=== PATIENT | female | born 2005 | race Caucasian/White ===

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

== ENCOUNTER 2025-03-05 16:56 | Emergency (ER) | payer OTHER ==
[~2025-03-05] VITALS: Ht 162.5 cm; Wt 65.8 kg
[~2025-03-05 16:56] MED LIST changes: +PEPCID20 MG PO; +REGLAN10 M1 PO
== END 2025-03-05 19:00 | disposition left against medical advice (07) ==
LOC: ED 16:56
DX: R07.81 Pleurodynia (principal); Z53.21 Procedure and treatment not carried out due to patient leaving prior to being seen by health care provider; W23.1XXA Caught, crushed, jammed, or pinched between stationary objects, initial encounter; Y93.89 Activity, other specified; Y92.89 Other specified places as the place of occurrence of the external cause; Y99.8 Other external cause status

== ENCOUNTER 2025-03-22 13:37 | Emergency (ER) | payer OTHER ==
[~2025-03-22] VITALS: Wt 66.7 kg
[2025-03-22] MEDS ORDERED: Ketorolac Tromethamine 30 MG/ML VIAL IM ONE (15:20)
[2025-03-22] MEDS ORDERED: NAPROSYN500 MG PO (15:45)
[2025-03-22] MEDS ORDERED: ZANAFLEX4 MG PO (15:45)
== END 2025-03-22 16:02 | disposition home or self-care (01) ==
LOC: ED 13:37
DX: S20.212A Contusion of left front wall of thorax, initial encounter (principal); F90.9 Attention-deficit hyperactivity disorder, unspecified type; F32.A Depression, unspecified; Z88.1 Allergy status to other antibiotic agents; Z79.899 Other long term (current) drug therapy; W23.0XXA Caught, crushed, jammed, or pinched between moving objects, initial encounter; Y93.89 Activity, other specified; Y92.89 Other specified places as the place of occurrence of the external cause; Y99.8 Other external cause status

== ENCOUNTER 2025-09-08 22:04 | Emergency (ER) | payer OTHER ==
[~2025-09-08] VITALS: Ht 162.5 cm; Wt 67.1 kg
[~2025-09-08 22:04] MED LIST changes: +NAPROSYN500 MG PO; +ZANAFLEX4 MG PO
== END 2025-09-08 23:57 | disposition home or self-care (01) ==
LOC: ED 22:04
DX: S06.0X0A Concussion without loss of consciousness, initial encounter (principal); R11.2 Nausea with vomiting, unspecified; R42 Dizziness and giddiness; H53.8 Other visual disturbances; Z88.1 Allergy status to other antibiotic agents; Z79.899 Other long term (current) drug therapy; W22.09XA Striking against other stationary object, initial encounter; Y93.89 Activity, other specified; Y92.238 Other place in hospital as the place of occurrence of the external cause; Y99.0 Civilian activity done for income or pay